=== PATIENT | female | born 1960 | race Caucasian/White ===

== ENCOUNTER → 2016-10-28 | Outpatient (CLI) | payer OTHER ==
[~2016-10-28] MED LIST: ADVIL200 MG PO; ASPIRIN325 MG PO; CELEXA20 MG PO; CUBICIN RF500 MG IV; DIAZEPAM5 MG PO; DICLOFENAC SODI50 MG PO; ECHINACEA400 MG PO; FISH OIL 1,2001 EACH PO; GLUCOSAMINE CH1 EAC2 PO; HYDROMORPHONE HC2 MG PO; IBUPROFEN800 MG PO; KLONOPIN0.5 M1 PO; LOVENOX 4040 MG/0.4 PO; LOVENOX 4040 MG/0.4 SUB-Q; MILK OF MA400 MG/5 M PO; MOBIC15 MG PO; NAPROSYN250 M1 PO; NEURONTIN100 MG PO; NORCO 10-325 T1 EACH PO; NORVASC10 MG PO; PAMELOR25 MG PO; PERCOCET 5-3251 EACH PO; PERCOCET 7.5-31 EACH PO; PRILOSEC20 MG PO; RIFADIN, RIMAC300 MG PO; TUMS200 MG PO; TYLENOL325 MG PO; ULTRAM50 MG PO; VALIUM5 MG PO; VITAMIN E1000 UNI1 PO; WOMEN'S DAILY1 EAC1 PO
== END | disposition disaster alternative care site (69) ==
LOC: GRAD 12:06
PROC: 3E0U33Z Introduction of Anti-inflammatory into Joints, Percutaneous Approach (ICD-10-PCS; principal; 2016-10-28)
PROC: 3E0U3BZ Introduction of Anesthetic Agent into Joints, Percutaneous Approach (ICD-10-PCS; 2016-10-28)
DX: M25.561 Pain in right knee (principal); M79.671 Pain in right foot; M17.11 Unilateral primary osteoarthritis, right knee

== ENCOUNTER 2017-02-03 09:00 | Inpatient (IN) | payer OTHER ==
[~2017-02-03] VITALS: Ht 162.6 cm; Wt 98.3 kg
--- NOTE | ~2017-02-03 | OR ---
PATIENT'S NAME: RILEY GORDON [facility] AGE: 56 Y [address] ROOM: [address] [address] LOCATION: [facility] ADMIT DATE: 02/03/2017 OR/Procedure Report DISCHARGE DATE: 02/07/2017 FAMILY PHYSICIAN: Sergey Gamez MD ATTENDING PHYSICIAN: Hugh Valle SURGEON: Hugh Valle MD RESTAURANT HOST: Cesar Washington PA-C. DATE OF PROCEDURE: 02/04/[address] VALLE / 03-21-2017 / ROSALINDA A 56-year-old female. PREOPERATIVE DIAGNOSES: 1. Right ankle and foot abscess. 2. Complex late wound dehiscence after previous attempt at tendon transfers to address posttraumatic drop foot deformity. POSTOPERATIVE DIAGNOSES: 1. Right ankle and foot abscess. 2. Complex late wound dehiscence after previous attempt at tendon transfers to address posttraumatic drop foot deformity. PROCEDURES: 1. Irrigation and debridement of right ankle wound measuring 5 cm x 2 cm x 2 cm including skin, subcutaneous tissue, muscle, fascia, and tendon. 2. Irrigation and debridement of right foot ulcer measuring 4 cm in length by 1 cm in depth. Debridement included skin, subcutaneous tissue, muscle, fascia, and tendon. 3. Primary closure of complex wound over the dorsum of the ankle or complex layered closure of the wound over the dorsum of the ankle, 5 cm in length by 4 cm in width. 4. Complex layered wound closure of the foot wound measuring 4 cm in length. ANESTHESIA: General endotracheal anesthesia. FLUIDS: See anesthesia report. ESTIMATED BLOOD LOSS: Minimal. TOURNIQUET: Right proximal thigh 250 mmHg. SPECIMEN: Right wound cultures from ankle and foot. COMPLICATIONS: None. DISPOSITION: Stable in PACU. PATIENT'S NAME: RILEY GORDON [facility] AGE: 56 Y [address] ROOM: [address] [address] LOCATION: [facility] ADMIT DATE: 02/03/2017 OR/Procedure Report DISCHARGE DATE: 02/07/2017 FAMILY PHYSICIAN: Sergey Gamez MD ATTENDING PHYSICIAN: Hugh Valle COUNTS: All counts correct. INDICATIONS: Ms. Gordon is a 56-year-old female, who underwent the noted procedures above. The risks, benefits, and alternatives pursuing a surgical intervention were discussed with the patient in detail. She elected to proceed with surgery. Anesthesia was consulted for their perioperative evaluation of the patient. I marked the patient's right lower extremity indicating correct surgical site. DESCRIPTION OF PROCEDURE: The patient was brought from the holding area to the operating room. A time-out was performed. Anesthesia was administered. Antibiotics were held for intraoperative cultures. The right lower extremity was then prepped and draped in a sterile fashion. An Esmarch was used to exsanguinate the limb. The tourniquet was inflated to 250 mmHg. A final time-out was performed. I turned my attention to the dorsum of the ankle where previous tendon transfers were undertaken through an incision in close proximity to a previous traumatic wound at the lateral aspect of her ankle that have been skin grafted in the past. Wound measured 5 cm in length by 4 cm in width. It stepped down to tendon with exposed tissue. Before the debridement of the tissue taken place over both wounds, wound cultures were taken along with soft tissue specimens and sent to the lab. I performed an extensive debridement of this wound through the skin, subcutaneous tissue, muscle, and fascia. The transfer tendon which appeared to be the posterior tibial tendon transferred to the dorsum of the foot, had a purulent drainage exposed FiberWire suture and was no longer in proximity to the point that had been tenodesed. I dissected and removed this nonviable portion of the tendon. A thorough irrigation of the area was undertaken using 3 L of normal sterile saline solution via pulsatile lavage. A layered wound closure using a 2-0 nylon suture to approximate the wound after series of relaxing incisions were made. It allowed the tissue to approximate primarily. The debridement portion was undertaken with the use of a 15 blade knife, a series of rongeurs and curettes. I then turned my attention to the dorsum of the foot. Incision was made using a #15 blade knife. I exposed the infected tissue. A thorough debridement of skin, subcutaneous tissue, muscle, fascia, and tendon was undertaken. Nonviable nonabsorbable suture was observed and removed. The debridement using a 15 blade knife, series of curettes and rongeurs to adequately debride the area. The wound was then copiously irrigated with a normal sterile saline solution via pulsatile lavage. A layered closure was undertaken with use of 2- 0 nylon suture. PATIENT'S NAME: RILEY GORDON [facility] AGE: 56 Y [address] ROOM: [address] [address] LOCATION: [facility] ADMIT DATE: 02/03/2017 OR/Procedure Report DISCHARGE DATE: 02/07/2017 FAMILY PHYSICIAN: Sergey Gamez MD ATTENDING PHYSICIAN: Hugh Valle Sterile dressings were placed in the form of Xeroform, followed by 4x4, Webril, and Sy bandage. The tourniquet was let down. The toes reperfused well. The patient was then transferred to the operating table. Onto the stretcher and extubated. She was brought to the recovery room in stable condition. IMPRESSION: The patient is status post the noted procedure above. PLAN: The patient will be nonweightbearing on the right lower extremity. She was instructed to rest, ice, and elevate the extremity going forward. Intraoperative antibiotics were given after wound cultures were obtained. She was given vancomycin and Zosyn. This will be continued until postoperative wound cultures returned from the lab. The hospitalist will continue to manage the patient's concomitant medical comorbidities. DVT prophylaxis will be in the form of aspirin or Lovenox. Wound dressing change will be obtained on postoperative day two to evaluate the condition of the wound. Covered the heel with the SY that I guess slipped off. Physical Therapy and Occupational Therapy will be consulted for early ambulation and prevention of deconditioning. I will continue to follow the patient closely in the postoperative period. MD ANGEL DAWSON/ava /[id number] CORRECTED PER DR. VALLE / 03-21-2017 / KLD d: 02/04/17 1730 t: 03/24/17 0828, OPERATIVE SUMMARY
--- NOTE | ~2017-02-03 | CON ---
PATIENT'S NAME: RILEY GORDON [facility] AGE: 56 Y [address] ROOM: [address] [place], [place] [address] LOCATION: [facility] ADMIT DATE: 02/03/2017 Consultation DISCHARGE DATE: FAMILY PHYSICIAN: Sergey Gamez MD ATTENDING PHYSICIAN: ANTONIO VALLE DATE OF CONSULTATION: 02/05/2017 REFERRING PHYSICIAN: SEKOU WITT MD REASON FOR EVALUATION: Foot infection, bacteremia. CHIEF COMPLAINT: The patient states that she is feeling pretty good, although her foot hurts. HISTORY OF PRESENT ILLNESS: Mrs. Gordon is a pleasant, generally healthy, 56-year-old woman. Her past medical history is apparently significant mostly for multitrauma which required multiple orthopedic surgeries. She has had surgery in the right foot before. This was in June 2015. 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 There was concern about development of a blister. In November, she was seen in clinic, had a callus trimmed, and blister dressed and was started on some antibiotics. She was seen about a month later and received some more cephalexin. She completed her antibiotics on January 23, 2017. Unfortunately, starting on the or the , the toes started to become worse. She was seen in clinic on the . She was having generalized systemic symptoms and some fever at that time. She had cultures done. She was started on parenteral ceftriaxone as an outpatient. Despite being compliant with this, she had worsening of the foot and there was development of soft tissue abscesses. Her ceftriaxone was changed to vancomycin and rifampin. She did have drainage of the area. She was noted to have development of exposed tendon. She was, therefore, admitted to the hospital. She underwent debridement. There is no mention of any bony involvement. I do not have any foot imaging. She is currently doing okay other than foot pain. She is not having any adverse effects from the antibiotics. I am asked to evaluate. PAST MEDICAL HISTORY: Significant for restless legs, reflux, history of a colon perforation requiring surgery and trauma requiring multiple orthopedic surgeries including a shoulder replacement. FAMILY HISTORY: Mom passed of a CVA. PATIENT'S NAME: TRAV GORDONITA Raquel [facility] AGE: 56 Y [address] ROOM: [address] [address] LOCATION: [facility] ADMIT DATE: 02/03/2017 Consultation DISCHARGE DATE: FAMILY PHYSICIAN: Sergey Gamez MD ATTENDING PHYSICIAN: ANTONIO VALLE SOCIAL HISTORY: Negative for drug use. No alcohol or tobacco abuse. REVIEW OF SYSTEMS: Pertinent positives include: MUSCULOSKELETAL: The patient with frequent pain. NEUROLOGIC: The patient with some baseline neuropathy in the foot. As the patient denies other symptoms, remainder of a complete review of systems is otherwise negative. PHYSICAL EXAMINATION: VITAL SIGNS: Temperature 97.7, heart rate 73, and blood pressure 170/87. GENERAL: The patient is sitting up in bed, in no acute distress. Appears nontoxic. HEENT: The patient is anicteric. No conjunctival lesions noted. Ears, nose, throat, and oropharynx has no thrush. CARDIOVASCULAR: Heart is regular rate and rhythm. RESPIRATORY: Breathing is easy and unlabored. Lungs are clear bilaterally. GASTROINTESTINAL. Abdomen is soft and nontender. Normoactive bowel sounds are present. LYMPHATIC: No popliteal lymphadenopathy. MUSCULOSKELETAL: I cannot really examine the foot or ankle as they are in an operative dressing at this time. No effusions of the left foot either knee, fingers, wrists, elbows, and shoulders. INTEGUMENTARY: Unable to examine the right foot or ankle at this time. Her peripheral IV site looks okay. LABORATORY STUDIES: Blood culture 1 out of 2 from January 27, positive for MSSA, that is sensitive to clindamycin, tetracycline, and Bactrim. Blood cultures on admission here are negative. Previous blood culture prior to admission with MSSA. OR culture is pending. ASSESSMENT: 1. MSSA foot infection. 2. MSSA bacteremia. PLAN: I will cover her with cefazolin for now. She is okay to have a PICC line placed. She was asymptomatic before her arrival here after she had been on her parenteral antibiotics. She has had over a week of parenteral antibiotics since the first positive blood culture. From the information I have here, it appears this is a low-grade secondary bacteremia as only one of two was PATIENT'S NAME: RILEY GORDON [facility] AGE: 56 Y [address] ROOM: [address] [address] LOCATION: [facility] ADMIT DATE: 02/03/2017 Consultation DISCHARGE DATE: FAMILY PHYSICIAN: Sergey Gamez MD ATTENDING PHYSICIAN: ANTONIO VALLE positive. However, I still would like to treat fairly aggressively here. It does not appear that there was bone involvement based on data available to me at this time. This is promising. I would plan on a 2 to 4 week course of parenteral antibiotics. We will keep her on the antibiotics until ID Clinic visit on February 26. Hopefully, she can do cefazolin 2 g IV q.8 h. at home. If not she requires in Infusion Center, we can change her over to daptomycin 6 mg/kg IV every 24 hours. She will require weekly labs while she is on these antibiotics. We will see how she is doing. A clinic follow up to determine if further antibiotics are needed at that point. Thank for allowing me to participate in the care of Mrs. Gordon. MD GRACY SANDRAQ/modl /[id number] d: 02/05/17 1716 t: 02/06/17 1054, CONSULTATION REPORT
--- NOTE | ~2017-02-03 | DS ---
PATIENT'S NAME: [facility] AGE: 56 Y [address] ROOM: [address] [place], [place] [address] LOCATION: [facility] ADMIT DATE: 02/03/2017 Discharge Summary DISCHARGE DATE: 02/07/2017 FAMILY PHYSICIAN: Sergey Gamez MD ATTENDING PHYSICIAN: Hugh Bello ADMITTING DIAGNOSES: 1. Right ankle and foot abscess. 2. Complex leg wound dehiscence after previous attempted tendon transfer to address posttraumatic drop foot deformity. DISCHARGE DIAGNOSES: 1. Right ankle and foot abscess. 2. Complex leg wound dehiscence after previous attempted tendon transfer to address posttraumatic drop foot deformity. SECONDARY DIAGNOSES: 1. Depression. 2. Anxiety. 3. Restless legs syndrome. 4. Gastroesophageal reflux disease. 5. History of prior colon perforation, requiring surgery. CONSULTATIONS: 1. Hospitalist Service for medical management. 2. Severino Peterson MD for Infectious Disease. PROCEDURES: The patient underwent the following procedure on February 04, [address] Bello. 1. Irrigation and debridement of right ankle wound measuring 5 cm in length and 2 cm in width, including skin, subcutaneous tissue, muscle, fascia, and tendon. 2. Irrigation and debridement of a right foot ulcer measuring 4 cm in length. Debridement included skin, subcutaneous tissue, muscle, fascia, and tendon. 3. Primary layered closure of complex wound over the dorsum of the ankle and foot, 5 cm in length x 4 cm in depth. 4. Primary layered closure of complex wound at the foot measuring 4 cm in length. HISTORY OF PRESENT ILLNESS: The patient is a 56-year-old female who was noncompliant at baseline with her previous surgery. The patient presented for evaluation of a wound of her right lower extremity. She underwent a tendon PATIENT'S NAME: [facility] AGE: 56 Y [address] ROOM: [address] [place], [place] [address] LOCATION: [facility] ADMIT DATE: 02/03/2017 Discharge Summary DISCHARGE DATE: 02/07/2017 FAMILY PHYSICIAN: Sergey Gamez MD ATTENDING PHYSICIAN: Hugh Bello transfer to address her drop foot in the past. The patient was noncompliant, walked on it, and had loss of excursion of the tendons. She only had trace dorsiflexion capabilities. Her gait was not normal. She developed approximately 1 month ago what appeared to be a stage 3 pressure ulcer sore at the plantar medial surface of the great toe, that was infected. Dr. Bello recommended irrigation and debridement of this wound. The patient declined. She was treated with antibiotics instead. Dr. Bello received a phone call from outside emergency room and spoke to the physician real estate assistant electron beam photo mask maker, who was familiar with the patient. He explained that he had aspirated what appeared to be purulent fluid coming from the wound at the surgical site of the dorsum of the ankle. He reported that with antibiotic therapy the wound of the great toe had resolved. Unfortunately, she had succumbed to a bigger problem. The PA's assessment was that the infection had likely given grave complications if they were to be neglected and the sore on her great toe. She had been treated with IV antibiotics in her home town. She had reported some pain in the ankle. When Dr. Bello saw the patient, there appeared to be some exposure of tendon on the dorsum of the foot. She was ambulatory when seen. She denied any constitutional symptoms such as fevers, chills, or night sweats. At that time, it was recommend the patient undergo surgery as described above. The risks, benefits, and alternatives were discussed with the patient at that time, and she was scheduled for surgery at that time. HOSPITAL COURSE: The patient underwent the following above-described procedure on February 04, 2017, and tolerated the procedure well. Postoperatively, her pain medications were optimized to keep her analgesia adequate. She was seen by Infectious Disease and had postoperative antibiotics adjusted per their recommendations. Intraoperative cultures were negative. The patient had been on antibiotics prior to coming into the OR. Based on cultures obtained prior to the patient being seen by Dr. Bello, Ancef and/or daptomycin were recommended by Infectious Disease. During her hospitalization, the hospitalist managed her medically. The patient did work with Physical/Occupational Therapy during her admission. manager support worked on discharge planning for the patient. The patient during her admission did have a PICC line placed for outpatient IV antibiotics. Arrangements were made for the patient to have daily infusions of IV daptomycin back in her home town. Case Management made the arrangements for the patient to be discharged. After arrangements were made, the patient was determined to be stable. She was discharged to home on February 07, 2017. DISCHARGE INSTRUCTIONS: She is to be nonweightbearing of her right lower extremity. She is to follow a cardiac diet. The patient is to have dressings changed every 2-3 days at [facility]. The patient is to have every Friday ESR, CRP, CPK, CBC with diff, and CMP done and fax to the Infectious Disease Clinic. The patient is to use a knee scooter and wear her Cam boot while transferring. She is to follow a cardiac diet. PATIENT'S NAME: RILEY GORDON [facility] AGE: 56 Y [address] ROOM: [address] [address] LOCATION: [facility] ADMIT DATE: 02/03/2017 Discharge Summary DISCHARGE DATE: 02/07/2017 FAMILY PHYSICIAN: Sergey Gamez MD ATTENDING PHYSICIAN: Hugh Bello STOP MEDICATIONS: 1. Rifampin. 2. Ibuprofen. 3. [place]. NEW MEDICATIONS: 1. Amlodipine 10 mg daily. 2. Lovenox 40 mg subcutaneous daily. 3. Milk of magnesia 10 mL p.o. daily as needed for constipation. 4. Percocet 7.5/325 mg 1-2 tabs every 4-6 hours as needed for pain. 5. Diazepam 5 mg one tab every 8 hours as needed for muscle spasm. 6. Daptomycin 500 mg 1 bag IV daily at [facility]. Otherwise, the patient is to continue her preadmission medications as prescribed by her Internal Medicine doctor. FOLLOWUPS: The patient is to follow up with Dr. Peterson, an in Infectious Disease doctor, on February 26, 2017, at 3:30 a.m. The patient is to follow up with Dr. Sergey Gamez, her primary care provider on February 10, 2017 at 10:45 a.m. The patient is to follow up in Dr. Bello' office on February 21, 2017 at 11:05 a.m. DISCHARGE STATUS: [facility]. BLUE DARDEN PA-C FOR MD OUSMANE DAWSON/ava /[id number] d: 02/18/17 0013 t: 03/24/17 0825, DISCHARGE SUMMARY
--- NOTE | ~2017-02-03 | CON ---
PATIENT'S NAME: RILEY GORDON [facility] AGE: 56 Y [address] ROOM: [address] [address] LOCATION: G3 ADMIT DATE: 02/03/2017 Consultation DISCHARGE DATE: FAMILY PHYSICIAN: Sergey Gamez MD ATTENDING PHYSICIAN: ANTONIO VALLE REFERRING PHYSICIAN: SEKOU WITT MD ADDENDUM: Blood work came back and was unremarkable except a mild elevation of lactic acid of 2.0, a mild elevation of proBNP to 657, elevation of alkaline phosphatase 151, CRP of 3.61, and prealbumin of 17. Procalcitonin is pending. ESR is pending. Chest x-ray came back unremarkable. EKG is unremarkable. The patient is cleared for incision and debridement tomorrow morning by Orthopedic Surgery. We will be checking the blood pressure every hour for now until it comes down, and then we will check every 4 hours per the regular vital signs check in [facility]-[place] floor. She can have a cardiac diet for now. After midnight, she will be n.p.o. and started on the D5 water plus normal saline at 75 mL/hr for maintenance. Follow up plan will depend on clinical course. For now, the patient is cleared to go down for the incision and drainage tomorrow morning. SEKOU WITT MD CC/modl /[id number] d: 02/03/172102 t: 02/04/17 0856, CONSULTATION REPORT
--- NOTE | ~2017-02-03 | ECHO ---
Transthoracic Echocardiography Report (TTE) Demographics Patient Name RILEY GORDON Date of Study 02/04/2017 Patient Number [id number] Visit Number [id number] Date of 1960 Room Number G3306 Accession Number [id number] Gender Female Age 56 year(s) Referring Dalia Heard MD Primer Waterproofing Machine Operator Bud Alonso RDCS, Physician RVT Physician Interpreting Vince Callahan Saw Feeder Physician Supervising Ordering Physician Dalia Heard MD, MD/P Nurse Stress Chart Computer Conclusions Contractility Score Summary Normal Left Ventricular contractility was noted. Summary Normal LV/RV size and systolic function. The estimated left ventricular ejection fraction is 60-65%. Diastolic assessment reveals Grade I diastolic dysfunction. No significant valvular abnormalities. No evidence of pericardial effusion. Procedure Type of Study TTE procedure:2D Echocardiogram. Procedure Date Date: 02/04/2017 Start: 06:45 AM Study Location: Inpatient Portable Technical Quality: Adequate visualization Indications:Pre surgical clearance and Fever. Appropriate Use Criteria: 9 Patient Status: Routine HR: 65 bpm BP: 159/86 mmHg M-Mode/2D Measurements LV Diastolic Dimension: 3.91 cm LV Systolic Dimension: 2.4 cm LV Septum Diastolic: 0.85 cm LV PW Diastolic: 0.89 cm Cardiac Output: 3.83 l/min LA Dimension: 4 cm LVOT: 1.9 cm LVOT VTI: 20.8 cm RV Base: 3.13 cm LV Stroke volume: 58.94 ml RV Length: 6.42 cm TAPSE: 2.49 cm TDI-S': 12.2 cm/s Doppler Measurements AV Peak Velocity: 1.27 m/s MV Peak E-Wave: 0.64 m/s AV Peak Gradient: 6.45 mmHg MV Peak A-Wave: 1.02 m/s AV Mean Gradient: 4 mmHg MV E/A Ratio: 0.63 LVOT Peak Velocity: 0.96 m/s MV P1/2t: 107 msec TR Gradient:9.86 mmHg PV Peak Velocity: 0.93 m/s Estimated RAP:5 mmHg PV Peak Gradient: 3.43 mmHg Estimated RVSP: 15 mmHg Estimated PASP: 14.86 mmHg E' Septal Velocity: 0.05 m/s A' Septal Velocity: 0.1 m/s E' Lateral Velocity: 0.09 m/s A' Lateral Velocity: 0.13 m/s Findings Left Ventricle Normal left ventricle size and function. Diastolic assessment reveals Grade I diastolic dysfunction. Right Ventricle Normal right ventricle structure and function. Left Atrium Normal left atrial size. Right Atrium Normal right atrial size. IVC imaging is consistent with normal RA pressures. Mitral Valve Mild mitral regurgitation by color Doppler. Mild mitral annular calcification. Aortic Valve Normal aortic valve structure and function. Tricuspid Valve Normal tricuspid valve structure and function. Pulmonic Valve Normal pulmonic valve structure and function. Pericardial Effusion No evidence of pericardial effusion. Miscellaneous Visualized portions of the aortic root and ascending aorta appear normal in size. Pleural Effusion No evidence of pleural effusion. Contractility Score LV regional wall motion:(0-Non visualized 1-Normal 2-Hypokinesis 3-Akinesis 4-Dyskinesis 5-Aneurysm) Signature dtt: DAVE BRISENO dtd: 02/04/17 0645 Physician Self Edit
--- NOTE | ~2017-02-03 | CON ---
PATIENT'S NAME: RILEY GORDON [facility] AGE: 56 Y [address] ROOM: [address] [address] LOCATION: G3N ADMIT DATE: 02/03/2017 Consultation DISCHARGE DATE: FAMILY PHYSICIAN: Sergey Gamez MD ATTENDING PHYSICIAN: ANTONIO VALLE DATE OF CONSULTATION: 02/03/2017 REFERRING PHYSICIAN: SEKOU WITT MD CHIEF COMPLAINT: Right foot pain. HISTORY OF PRESENT ILLNESS: This is a 56-year-old female who says that roughly last Friday, the patient noticed a blister on her right big toe. It was red, swollen, and painful, and she saw her primary care physician on that day who did irrigation and also cleaning of the blister and started her on IV antibiotics once daily. The patient was going to the office every single day for IV antibiotics. Last Friday, near her lateral right foot, near her right malleolus, the patient noticed a painful bump that is tender, swollen, and also erythematous. Therefore, she went back to the primary care physician, and the primary care physician did drainage, and according to the patient, some pus come out, and the primary care physician contacted Dr. Ayala, and started the patient on different antibiotics including oral and IV. Last Friday, when the patient went back for a checkup for the dressing change, the nurse noticed that the patient had exposure of the tendon on the right foot and was concerned about infection, according to the patient. Therefore, the patient was sent to her primary care physician who in return sent the patient over here for further care. Today, the patient is scheduled to undergo incision and debridement of the right foot wound that is likely infected this afternoon, and the hospitalist team is consulted for preoperative medical evaluation before the procedure. By reviewing the medical chart, she had a blood culture that was positive for Staphylococcus aureus, MSSA, that was drawn on January 27, 2017. The patient states that she has not had echo yet. At baseline, the patient is a functional individual. Denies any chest pain or any shortness of breath, and does not have any coronary artery disease or any lung problem, and does not take any blood thinner either besides daily aspirin 325 mg p.o. daily. Her last dose was yesterday evening on February 02, 2017. Her METS score is more than 4 at baseline. Currently, she denies any chest pain, shortness of breath, palpitation, fever, or chills and also denies any foot pain. PATIENT'S NAME: RILEY GORDON [facility] AGE: 56 Y [address] ROOM: [id number] [place], [place] [id number] LOCATION: [facility] ADMIT DATE: 02/03/2017 Consultation DISCHARGE DATE: FAMILY PHYSICIAN: Sergey Gamez MD ATTENDING PHYSICIAN: ANTONIO VALLE REVIEW OF SYSTEMS: As mentioned in the History of Present Illness. All other systems were reviewed and were negative except those mentioned in the History of Present Illness. PAST MEDICAL HISTORY: 1. Depression. 2. Anxiety. 3. Restless legs syndrome. 4. Gastroesophageal reflux disease. 5. History of prior colon perforation requiring surgery, according to the patient. ALLERGIES: BENADRYL WHICH CAUSES ANXIETY. HOME MEDICATIONS: 1. Aspirin 325 mg p.o. daily. 2. Celexa 20 mg p.o. daily. 3. Clonazepam 0.5 to 1 mg p.o. every night at bedtime p.r.n. for anxiety. 4. Gabapentin 200 mg p.o. daily every night at bedtime. 5. [place] 10/325 mg one tablet p.o. every 6 hours p.r.n. for pain. 6. Ibuprofen 600 mg p.o. every 8 hours p.r.n. for pain. 7. Meloxicam 15 mg p.o. every night at bedtime. 8. Multivitamin one tablet p.o. daily. 9. Nortriptyline 25 mg p.o. every night at bedtime. 10. Omeprazole 20 mg p.o. daily at bedtime p.r.n. for indigestion. 11. Rifampin 300 mg p.o. b.i.d. SOCIAL HISTORY: The patient denies any alcohol, cigarette, or any illegal drug use. PAST SURGICAL HISTORY: 1. Status post right ankle surgery in the past. 2. Status post bilateral carpal tunnel syndrome surgeries in the past. 3. Status post cataract surgery. 4. Status post left retinal detachment surgery in 2012. 5. Status post right knee surgery in the past. 6. Status post right hip surgery in the past. 7. Status post left Achilles tendon repair in 2015. 8. Status post right total shoulder surgery in the past. 9. Status post right footdrop surgery repair in the past in 2015. 10. Status post colectomy in August 2016. FAMILY HISTORY: PATIENT'S NAME: RILEY GORDON [facility] AGE: 56 Y [address] ROOM: [address] [address] LOCATION: [facility] ADMIT DATE: 02/03/2017 Consultation DISCHARGE DATE: FAMILY PHYSICIAN: Sergey Gamez MD ATTENDING PHYSICIAN: ANTONIO VALLE Father is healthy. Mother from a stroke at old age. PHYSICAL EXAMINATION: VITAL SIGNS: At the time of my dictation, blood pressure was 170/90, heart rate was 56, respirations were 14, saturation was 98% on room air, and temperature was 98. GENERAL APPEARANCE: Alert and oriented x3, in no acute distress. HEENT: Pupils equally round and reactive to light. Extraocular muscles intact. Anicteric sclerae. Nasal turbinates were normal bilaterally. Moist oral mucosa. NECK: No JVD. CARDIOVASCULAR: Regular rate and rhythm. No murmur. No rubs. No gallops. RESPIRATORY: Clear. CHEST WALL: Nontender to palpation. ABDOMEN: Soft, nontender, and nondistended. Normal bowel sounds. No hepatosplenomegaly. Bowel sounds were present. No mass. EXTREMITIES: No edema in upper or lower extremities. On the right lower extremity, she had a dressing cover on her right foot. Dorsalis pedis pulse present bilaterally. NEUROLOGIC: Sensation decreased on the right foot, which was chronic for the patient, unchanged. Otherwise, unremarkable. SKIN: The right foot was covered by dressing. No cyanosis on the toes. MUSCULOSKELETAL: Currently, she denies any pain in the right foot. Range of motion intact at the moment. LABORATORY DATA: Lactic acid pending. CPK 57 and troponin less than 0.04. White blood cells 10.6, hemoglobin 13.3, hematocrit 43, MCV 100, and platelets 540. Glucose 83, BUN 7, creatinine 0.9, sodium 140, potassium 4.2, chloride 108, CO2 of 25, calcium 9.4, anion gap 11.2, and GFR more than 60. CK-MB 1.2. Other labs are currently pending. IMAGING STUDY: Chest x-ray is ordered, but is pending. This is ordered for the preop evaluation. EKG is ordered, but is pending. It is also ordered for the preop evaluation. ASSESSMENT AND PLAN: 1. Regarding her right foot wound infection requiring incision and debridement: Defer to Orthopedic Surgery for incision and drainage later today. 2. Regarding her preoperative medical cardiac evaluation for noncardiac surgery: Currently, the EKG, chest x-ray, and blood work are pending. Based on my clinical interview and physical examination, it seems that PATIENT'S NAME: RILEY GORDON [facility] AGE: 56 Y [address] ROOM: [address] [address] LOCATION: [facility] ADMIT DATE: 02/03/2017 Consultation DISCHARGE DATE: FAMILY PHYSICIAN: Sergey Gamez MD ATTENDING PHYSICIAN: ANTONIO VALLE the patient currently does not have any active cardiac contraindication to undergo surgery or require any additional testing. However, I will wait until the blood work and also EKG and the chest x-ray are performed and then make a final decision. If the blood work, EKG, and chest x-ray all look okay and normal, then the patient will have no problem undergoing the procedure later today for incision and debridement. Keep her n.p.o. for now. Further plan will depend on clinical course. 3. Regarding her depression: We will continue home medication with nortriptyline. 4. Regarding her restless legs syndrome: Under good control without medication. 5. Regarding her anxiety: Continue her Klonopin p.r.n. p.o. 6. Regarding her gastroesophageal reflux disease: Continue her omeprazole 20 mg p.o. every night at bedtime p.r.n. for indigestion. 7. Regarding her prophylaxis: Nothing for now because she is pending incision and debridement later today and then will be deferred to Orthopedic Surgery's choice. 8. Regarding her code status: She is a full code. 9. Regarding her hypertension: She does not have any known history of hypertension. Probably, this hypertension could be from the pain when she had her blood drawn for the blood work. I will give her IV hydralazine p.r.n. and also IV labetalol p.r.n. Time spent in care on the day of consultation is 40 minutes including 20 minutes spent on chart review and also on examination and on interview. The other 20 minutes was spent on counseling including going over the plan of care and also addressing all the questions and concerns that the patient had. Further plan will depend on clinical course. MD LIBBY PATEL/ava /[id number] d: 02/03/17 1422 t: 02/04/17 0900, CONSULTATION REPORT
--- NOTE | ~2017-02-03 | CON ---
PATIENT'S NAME: RILEY GORDON [facility] AGE: 56 Y [address] ROOM: [address] [address] LOCATION: [facility] ADMIT DATE: 02/03/2017 Consultation DISCHARGE DATE: FAMILY PHYSICIAN: Sergey Gamez MD ATTENDING PHYSICIAN: ANTONIO VALLE REFERRING PHYSICIAN: SEKOU WITT MD ADDENDUM: She had a blood culture positive for MSSA that was done on outpatient on January 27, 2017. I will get a transthoracic echo to make sure there is no vegetation to rule out bacterial endocarditis. Given that she does have Staph bacteremia on January 27, 2017. In addition, I will repeat 2 more sets of blood culture to if there is persistent bacteremia. Further plan will depend on clinical course. SEKOU WITT MD CC/modl /[id number] d: 02/03/17 1420 t: 02/04/17 0903, CONSULTATION REPORT
[~2017-02-03 09:00] MED LIST changes: -ADVIL200 MG PO; -CUBICIN RF500 MG IV; -LOVENOX 4040 MG/0.4 SUB-Q; -MILK OF MA400 MG/5 M PO; -NORCO 10-325 T1 EACH PO; -NORVASC10 MG PO; -PERCOCET 7.5-31 EACH PO; -RIFADIN, RIMAC300 MG PO
[2017-02-03] MEDS ORDERED: ASPIRIN325 MG PO (10:13)
[2017-02-03] MEDS ORDERED: RIFADIN, RIMAC300 MG PO (10:13)
[2017-02-03] MEDS ORDERED: NORCO 10-325 T1 EACH PO (10:14)
[2017-02-03] MEDS ORDERED: ADVIL200 MG PO (10:14)
[2017-02-03 12:16] LABS: BASOPHIL # 0.1 K/uL (0.0-0.2); EOSINOPHIL # 0.3 K/uL (0.0-0.5); EOSINOPHIL % 2.4 %; HEMOGLOBIN 13.3 g/dL (10.0-15.0); IMMATURE GRANULOCYTE # 0.3 K/uL (0.0-0.3); IMMATURE GRANULOCYTE % 2.9 %; LYMPHOCYTE # 2.2 K/uL (0.8-4.0); LYMPHOCYTE % 20.6 %; MCH 31.2 pg (27.0-34.0); MCHC 30.9 gm/dL (32.0-36.5); MCV 100.9 fl (83.0-98.0); MONOCYTE # 0.6 K/uL (0.0-1.0); MONOCYTE % 5.2 %; MPV 8.3 fl (9.4-12.4); NEUTROPHIL # (ANC) 7.2 K/uL (1.8-7.8); NEUTROPHIL % 67.9 %; NRBC % 0 /100WBC (0-0.00); PLATELET COUNT 540 K/uL (150-450); RBC 4.26 M/uL (3.50-5.50); RDW-CV 13.2 % (11.9-14.6); WBC 10.6 K/uL (4.0-11.0)
[2017-02-03 12:44] LABS: BLOOD UREA NITROGEN 7 mg/dL (6-24); CALCIUM 9.4 mg/dL (8.5-10.5); CHLORIDE 108 mMol/L (96-110); CO2 25 mMol/L (22-32); CPK 57 IU/L (21-215); CREATININE 0.9 mg/dL (0.5-1.1); ESTIMATED GFR (MDRD EQUATION) > 60; SODIUM 140 mMol/L (135-145)
[2017-02-03 12:46] LABS: ANION GAP 11.2 (10.0-19.0); POTASSIUM 4.2 mMol/L (3.7-5.1)
[2017-02-03 13:23] LABS: INR - (THERAPEUTIC) 0.92 (0.92-1.07); PROTIME 9.7 SECONDS (9.8-11.4)
[2017-02-03 13:39] LABS: ALBUMIN 3.6 gm/dL (3.5-5.0); TOTAL BILIRUBIN 0.7 mg/dL (0.0-1.5); TOTAL PROTEIN 7.9 g/dL (6.0-8.4)
[2017-02-05 05:50] LABS: BASOPHIL # 0.1 K/uL (0.0-0.2); BASOPHIL % 0.5 %; EOSINOPHIL # 0.2 K/uL (0.0-0.5); EOSINOPHIL % 1.5 %; HEMATOCRIT 39.8 % (33.0-46.0); IMMATURE GRANULOCYTE # 0.2 K/uL (0.0-0.3); IMMATURE GRANULOCYTE % 1.4 %; LYMPHOCYTE # 2.7 K/uL (0.8-4.0); LYMPHOCYTE % 19.5 %; MCH 31.1 pg (27.0-34.0); MCHC 32.7 gm/dL (32.0-36.5); MONOCYTE # 0.7 K/uL (0.0-1.0); MONOCYTE % 4.8 %; MPV 8.2 fl (9.4-12.4); NEUTROPHIL # (ANC) 9.9 K/uL (1.8-7.8); NEUTROPHIL % 72.3 %; NRBC % 0 /100WBC (0-0.00); PLATELET COUNT 483 K/uL (150-450); RBC 4.18 M/uL (3.50-5.50); RDW-CV 13.2 % (11.9-14.6); WBC 13.7 K/uL (4.0-11.0)
[2017-02-05 05:56] LABS: ANION GAP 10.5 (10.0-19.0); CALCIUM 8.7 mg/dL (8.5-10.5); MAGNESIUM 2.2 mg/dL (1.8-2.6); POTASSIUM 3.5 mMol/L (3.7-5.1)
[2017-02-05 05:59] LABS: MCV 95.2 fl (83.0-98.0)
[2017-02-06 05:58] LABS: BASOPHIL # 0.1 K/uL (0.0-0.2); BASOPHIL % 0.5 %; EOSINOPHIL # 0.4 K/uL (0.0-0.5); EOSINOPHIL % 3.9 %; HEMATOCRIT 41.6 % (33.0-46.0); HEMOGLOBIN 13.7 g/dL (10.0-15.0); IMMATURE GRANULOCYTE # 0.1 K/uL (0.0-0.3); IMMATURE GRANULOCYTE % 0.9 %; LYMPHOCYTE # 2.3 K/uL (0.8-4.0); LYMPHOCYTE % 22.1 %; MCH 30.6 pg (27.0-34.0); MCHC 32.9 gm/dL (32.0-36.5); MCV 92.9 fl (83.0-98.0); MONOCYTE # 0.5 K/uL (0.0-1.0); MPV 7.9 fl (9.4-12.4); NEUTROPHIL # (ANC) 7.2 K/uL (1.8-7.8); NEUTROPHIL % 67.6 %; NRBC % 0 /100WBC (0-0.00); PLATELET COUNT 474 K/uL (150-450); RBC 4.48 M/uL (3.50-5.50); RDW-CV 13.1 % (11.9-14.6); WBC 10.6 K/uL (4.0-11.0)
[2017-02-06 06:13] LABS: ANION GAP 10.9 (10.0-19.0); BLOOD UREA NITROGEN 12 mg/dL (6-24); CALCIUM 9.1 mg/dL (8.5-10.5); CHLORIDE 105 mMol/L (96-110); CO2 29 mMol/L (22-32); CREATININE 0.9 mg/dL (0.5-1.1); ESTIMATED GFR (MDRD EQUATION) > 60; MAGNESIUM 2.7 mg/dL (1.8-2.6); POTASSIUM 3.9 mMol/L (3.7-5.1); SODIUM 141 mMol/L (135-145)
[2017-02-07] MEDS ORDERED: NORVASC10 MG PO (11:52)
[2017-02-07] MEDS ORDERED: LOVENOX 4040 MG/0.4 SUB-Q (11:53)
[2017-02-07] MEDS ORDERED: MILK OF MA400 MG/5 M PO (11:54)
[2017-02-07] MEDS ORDERED: PERCOCET 7.5-31 EACH PO (11:57)
[2017-02-07] MEDS ORDERED: VALIUM5 MG PO (11:58)
[2017-02-07] MEDS ORDERED: CUBICIN RF500 MG IV (12:00)
== END 2017-02-07 13:00 | disposition disaster alternative care site (69) | DRG 854 ==
LOC: G3N 09:23
PROVIDERS: Hospitalist; ADMIT Orthopaedic Surgery Adult Reconstructive Orthopaedic Surgery
PROC: 0LBV0ZZ Excision of Right Foot Tendon, Open Approach (ICD-10-PCS; principal; 2017-02-04)
PROC: 0JDQ3ZZ Extraction of Right Foot Subcutaneous Tissue and Fascia, Percutaneous Approach (ICD-10-PCS; principal; 2017-02-04)
DX: A41.9 Sepsis, unspecified organism (principal); L02.415 Cutaneous abscess of right lower limb; I10 Essential (primary) hypertension; A49.01 Methicillin susceptible Staphylococcus aureus infection, unspecified site; Z91.19 Patient's noncompliance with other medical treatment and regimen; L97.519 Non-pressure chronic ulcer of other part of right foot with unspecified severity; F32.9 Major depressive disorder, single episode, unspecified; F41.9 Anxiety disorder, unspecified; G25.81 Restless legs syndrome; K21.9 Gastro-esophageal reflux disease without esophagitis; T81.33XD Disruption of traumatic injury wound repair, subsequent encounter
CPT/HCPCS: C1751; J0360; J0690; J0878; J1100; J1170; J1650; J1885; J2001; J2250; J2270; J2405; J2543; J3010; J3370; J3480; J7040; J7042; J7050; J7120